=== PATIENT | male | born 1990 | race Caucasian/White ===

== ENCOUNTER 2017-09-17 21:12 | Emergency (ER) | payer OTHER ==
[~2017-09-17] VITALS: Ht 182.9 cm; Wt 68.0 kg
[~2017-09-17 21:12] MED LIST: ALPR1 PO; FAMO20 PO; MEDR4PAK3 PO; OMEP20TA39 PO; SERT100 PO; VIST50CA PO
[2017-09-17 21:15] VITALS: BP 136/88; PULSE 82; RESP 16; TEMP 98.2; O2SAT 98
[2017-09-17] MEDS ORDERED: PAXI10TA2 PO ×2 (21:51→22:03)
[2017-09-17] MEDS ORDERED: LORA-474 PO ×2 (21:51→22:03)
[2017-09-17] MEDS ORDERED: ACETAMINOPHEN 325 MG TAB PO ONE (22:30)
[2017-09-17] MEDS ORDERED: TETANUS/DIPHTHERIA TOXOID ADULT 0.5 ML VIAL IM ONE (22:30)
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
== END 2017-09-18 00:05 | disposition home or self-care (01) ==
LOC: NEPD 21:12
DX: M84.375A Stress fracture, left foot, initial encounter for fracture (principal); W24.0XXA Contact with lifting devices, not elsewhere classified, initial encounter; Y92.69 Other specified industrial and construction area as the place of occurrence of the external cause; Y99.0 Civilian activity done for income or pay; Z23 Encounter for immunization
CPT/HCPCS: 29515; 73610; 73630; 90471; 90714; 99283; E0113